=== PATIENT | female | born 1990 | race Caucasian/White ===

== ENCOUNTER → 2016-10-30 | Outpatient (REF) | payer OTHER ==
[~2016-10-30] MED LIST: ACET50TA PO; IBUP80TA PO
== END ==
LOC: M LAB REF 17:35
PROVIDERS: ATTEND Advanced Practice Midwife
DX: Z12.4 Encounter for screening for malignant neoplasm of cervix (principal); R87.610 Atypical squamous cells of undetermined significance on cytologic smear of cervix (ASC-US)

== ENCOUNTER → 2017-03-02 | Outpatient (REF) | payer OTHER | LOC: M SFHCLERA 12:10 | PROVIDERS: ATTEND Nurse Practitioner Family | DX: M54.5 Low back pain (principal) ==

== ENCOUNTER → 2018-08-18 | Outpatient (REF) | payer OTHER ==
[~2018-08-18] MED LIST changes: -ACET50TA PO; +MAPA500T2 PO
== END ==
LOC: M LAB REF 18:54
PROVIDERS: ATTEND Advanced Practice Midwife
DX: Z12.4 Encounter for screening for malignant neoplasm of cervix (principal)

== ENCOUNTER → 2018-08-28 | Outpatient (CLI) | payer OTHER ==
--- NOTE | 2018-08-28 09:41 | REP ---
Clinical: Right lower quadrant pain . Technique: Transabdominal pelvic ultrasound followed by transvaginal examination for better evaluation of the endometrium and adnexa with color Doppler evaluation of the ovaries. Comparison: 04/05/2015. Findings: Bladder is unremarkable and measures a 0.5 x 6.1 x 6.8 cm . Normal anteverted uterus measures 7.8 x 3.5 x 5.0 cm . The endometrial complex measures 3.6 mm thickness. No discrete uterine or endometrial abnormalities are appreciated. IUD identified in satisfactory position. Bilateral ovaries are normal in vascularity without evidence for torsion. Right ovary measures 3.9 x 1.6 x 3.2 cm ; R I = 0.45 . Left ovary measures 3.4 x 2.0 x 2.7 cm ; R I = 0.56 . Very subtle 7 mm echogenic area within the right ovary is nonspecific and may be an significant. No pelvic fluid or adnexal mass lesion . Impression: 1. Normal uterus with IUD in satisfactory position. 2. No evidence for torsion. 3. Very subtle 7 mm echogenic area within the right ovary. This may represent including hemorrhagic cyst with poor borders. Follow-up examination in 4 to 6 weeks may be warranted to evaluate for resolution. Electronically Signed by Justino Chew MD 08/28/2018 09:32 A
== END ==
LOC: M RAD 08:07
PROVIDERS: ATTEND Advanced Practice Midwife
DX: R10.31 Right lower quadrant pain (principal); Z97.5 Presence of (intrauterine) contraceptive device

== ENCOUNTER → 2018-10-14 | Outpatient (CLI) | payer OTHER ==
--- NOTE | 2018-10-14 22:42 | REP ---
Clinical: Ovarian cyst. Comparison: 08/28/2018. Technique: Transabdominal pelvic ultrasound with color Doppler evaluation of the adnexa. Findings: Normal anteverted uterus measures 8.8 x 2.9 x 3.0 cm. Endometrial complex measures 3.6 mm thickness. IUD identified in satisfactory position. Left ovary measures 3.6 x 1.8 x 1.8 cm; RI 0.71. Right ovary measures 2.7 x 1.3 x 1.2 cm. A 6.2 x 5.6 x 6.7 mm echogenic focus within the right ovary is again identified and unchanged. Bladder is normal and measures 9.0 x 10.3 x 7.9 cm. Impression: Relatively normal stable pelvic ultrasound. Electronically Signed by Justino Chew MD 10/14/2018 10:35 P
== END ==
LOC: M RAD 12:57
PROVIDERS: ATTEND Advanced Practice Midwife
DX: N83.201 Unspecified ovarian cyst, right side (principal)

== ENCOUNTER 2018-11-15 20:11 | Emergency (ER) | payer OTHER, SELFPAY ==
[~2018-11-15] VITALS: Ht 157.5 cm; Wt 59.1 kg
[2018-11-15] MEDS ORDERED: PSEUDOEPHEDRINE 30 MG TAB PO STA (21:36)
[2018-11-15] MEDS ORDERED: ONDANSETRON 4 MG ORAL DISINTEGRATING TAB (Q0162 PER 1MG) PO ONE (21:45)
[2018-11-15] MEDS ORDERED: AMOXICILLIN 500 MG CAP PO ONE (21:45)
[2018-11-15] MEDS ORDERED: PSEU120T19 PO (22:37)
[2018-11-15] MEDS ORDERED: AMOX500C PO (22:37)
[2018-11-15 22:50] VITALS: BP 120/76
--- NOTE | 2018-11-16 09:44 | REP ---
HISTORY: Dyspnea and pyrexia. COMPARISON: 02/05/2012 FINDINGS: The superior mediastinal structures are midline. The cardiac silhouette is unremarkable in size, shape and position. The diaphragmatic surfaces of the lungs are regular and the costophrenic angles are clear. The pulmonary burnett are clear. The imaged osseous structures are intact. IMPRESSION: There is no acute cardiopulmonary disease. No change from the prior exam. Electronically Signed by Vaibhav Moss DO 11/16/2018 10:05 A
== END 2018-11-15 22:51 | disposition home or self-care (01) ==
LOC: M ED 20:11
DX: H66.91 Otitis media, unspecified, right ear (principal); B34.9 Viral infection, unspecified
CPT/HCPCS: 71046; 99283; Q0162

== ENCOUNTER → 2019-07-26 | Outpatient (CLI) | payer OTHER ==
[~2019-07-26] MED LIST changes: +AMOX500C PO; +PSEU120T19 PO
== END ==
LOC: M LABSMTC 11:12
PROVIDERS: ATTEND Family Medicine
DX: Z11.59 Encounter for screening for other viral diseases (principal); Z20.818 Contact with and (suspected) exposure to other bacterial communicable diseases

== ENCOUNTER 2019-09-06 15:23 | Emergency (ER) | payer OTHER ==
[~2019-09-06] VITALS: Ht 160 cm; Wt 55.1 kg
[2019-09-06 15:23] VITALS: BP 120/76
[2019-09-06] MEDS ORDERED: MIRE1IUD IU (15:30)
[2019-09-06] MEDS ORDERED: KETOROLAC TROMETHAMINE 10 MG TAB PO ONE (15:45)
--- NOTE | 2019-09-06 22:52 | REP ---
RIGHT RIB SERIES: Four views of right ribs are performed. No fracture or bone lesion is seen. An accompanying PA view of the chest demonstrates no acute infiltrate. Heart and mediastinum are within normal limits. IMPRESSION: Negative right rib series. Electronically Signed by Jorge Franklin MD 09/07/2019 01:12 P
== END 2019-09-06 16:25 | disposition home or self-care (01) ==
LOC: M ED 15:23
DX: S23.41XA Sprain of ribs, initial encounter (principal); X58.XXXA Exposure to other specified factors, initial encounter; Y92.9 Unspecified place or not applicable; F41.9 Anxiety disorder, unspecified

== ENCOUNTER 2021-02-27 13:13 | Emergency (ER) | payer OTHER ==
[~2021-02-27] VITALS: Ht 157.5 cm; Wt 59.1 kg
[~2021-02-27 13:13] MED LIST changes: +MIRE1IUD IU
--- OUTSIDE RECORDS SUMMARY | 2021-02-27 13:21 | CCD ---
Author Author [facility] Organization [facility] Address Unknown Phone Unavailable Support Name Relationship Address Phone DOLLTREE Next Of Kin [address] [place] [address] DOLLAR TREE Next Of Kin [address] [place] [address] UNEMPLOYED Next Of Kin Unknown ARIC ISBELL Next Of Kin [address] [place] [address] Jaclyn ISBELL Next Of Kin [address] [place] [address] UE Next Of Kin Unknown Unavailable [employer] [place] [address] Unavailable ELEANOR PEOPLES Next Of Kin [address] [facility] [address] [place] [address] JADE ISBELL Next Of Kin [address] [place] [address] Re-disclosure Warning The records that you are about to access may contain information from federally-assisted alcohol or drug abuse programs. If such information is present, then the following federally mandated warning applies: This information has been disclosed to you from records protected by federal confidentiality rules (42 CFR part 2). The federal rules prohibit you from making any further disclosure of this information unless further disclosure is expressly permitted by the written consent of the person to whom it pertains or as otherwise permitted by 42 CFR part 2. A general authorization for the release of medical or other information is NOT sufficient for this purpose. The Federal rules restrict any use of the information to criminally investigate or prosecute any alcohol or drug abuse patient.The records that you are about to access may contain highly sensitive health information, the redisclosure of which is protected by Article 27-F of the [place] State Public Health law. If you continue you may have access to information: Regarding HIV / AIDS; Provided by facilities licensed or operated by the [facility] Office of Mental Health; or Provided by the [facility] Office for People With Developmental Disabilities. If such information is present, then the following [facility] mandated warning applies: This information has been disclosed to you from confidential records which are protected by state law. State law prohibits you from making any further disclosure of this information without the specific written consent of the person to whom it pertains, or as otherwise permitted by law. Any unauthorized further disclosure in violation of state law may result in a fine or usp sentence or both. A general authorization for the release of medical or other information is NOT sufficient authorization for further disc losure. Family History Family Member Name Family Member Gender Family Member Status Date o f Status Description Data Source(s) Unknown Unknown Problem MEDENT ([facility], ) brother: Insulin dependent Medications No Information Insurance Providers Payer name Policy type / Coverage type Policy ID Covered green party ID Covered green party's relationship to alford Policy Alford Plan Information [id number] [facility] [id number] SP [id number] SELF PAY ONLY [id number] SP [id number] [facility] O [id number] S [id number] [employer] COMMUNITY PLAN MCDO [id number] SP [id number] United [employer] Commercial [id number] Self [id number] [employer] COMMUNITY PLAN MCDO [id number] SP [id number] United [employer] Commercial [id number] Self [id number] [employer] COMMUNITY PLAN MCDO [id number] SP [id number] Medicaid [place] Medigap Part B [id number] Self [id number] [facility] [place] Medicaid [id number] Self [id number] [facility] O [id number] S [id number] Medicaid [place] Medigap Part B [id number] Self [id number] [facility] Medicaid [id number] Self [id number] [facility] [id number] SP [id number] MEDICAID M [id number] S [id number] O [id number] S [id number] P UNAVAILABLE UNAVAILA BLE MEDICAID [id number] SP [id number] MEDICAID [id number] SP [id number] SELF PAY UNAVAILABLE SP UNAVAILA BLE MIGUEL ANGEL [id number] SP [id number] Problems, Conditions, and Diagnoses No Information Surgeries/Procedures No Information Results No Information Social History No Information
[2021-02-27] MEDS ORDERED: ACET-897 PO (14:07)
[2021-02-27 17:44] VITALS: BP 111/68
[2021-02-27] MEDS ORDERED: KETOROLAC TROMETHAMINE 10 MG TAB PO ONE (20:30)
[2021-02-27] MEDS ORDERED: diphenhydrAMINE 50MG CAP PO ONE (20:30)
--- OUTSIDE RECORDS SUMMARY | 2021-02-27 21:04 | CCD ---
Author Author [facility] Organization [facility] Address Unknown Phone Unavailable Support Name Relationship Address Phone DOLLTREE Next Of Kin [address] [place] [address] DOLLAR TREE Next Of Kin [address] [place] [address] UNEMPLOYED Next Of Kin Unknown ARIC ISBELL Next Of Kin [address] [place] [address] Jaclyn ISBELL Next Of Kin [address] [place] [address] UE Next Of Kin Unknown Unavailable [place] [address] Unavailable ELEANOR PEOPLES Next Of Kin [address] [facility] [address] [place] [address] JADE ISBELL Next Of Kin [address] [place] [address] Re-disclosure Warning The records that you are [...] is protected by Article 27-F of the [place] State Public Health law. If you continue you may have access to information: Regarding HIV / AIDS; Provided by facilities licensed or operated by the [facility] Office of Mental Health; or Provided by the [facility] Office for People With Developmental Disabilities. If such information is present, then the following [facility] mandated warning applies: This information has [...] law may result in a fine or longterm sentence or both. A general authorization for the release of medical or other information is NOT sufficient authorization for further disc losure. Family History Family Member Name Family Member Gender Family Member Status Date o f Status Description Data Source(s) Unknown Unknown Problem [facility] ([facility], ) brother: Insulin dependent Medications No Information Insurance Providers Payer name Policy type / Coverage type Policy ID Covered democrat ID Covered democrat's relationship to alford Policy Alford Plan Information [id number] [facility] [id number] SP [id number] [id number] SP [id number] [facility] O [id number] S [id number] [facility] O [id number] S [id number] United Healthcare Commercial [id number] Self [id number] [facility] COMMUNITY PLAN [facility] [id number] SP [id number] [facility] Commercial [id number] Self [id number] [facility] [id number] SP [id number] Medicaid [place] Medigap Part B [id number] Self [id number] [facility] [place] Medicaid [id number] Self [id number] SELF PAY ONLY [id number] SP [id number] Medicaid [facility] Part B [id number] Self [id number] [facility] [place] Medicaid [id number] Self [id number] [facility] COMMUNITY PLAN [facility] [id number] SP [id number] MEDICAID M [id number] S [id number] [facility] O [id number] S [id number] P UNAVAILABLE UNAVAILA BLE MEDICAID [id number] SP [id number] MEDICAID [id number] SP [id number] SELF PAY UNAVAILABLE SP UNAVAILA BLE [facility] [id number] SP [id number] Problems, Conditions, and Diagnoses No Information Surgeries/Procedures No Information Results No Information Social History No Information
== END 2021-02-28 01:35 | disposition home or self-care (01) ==
LOC: M ED 13:13
DX: G43.909 Migraine, unspecified, not intractable, without status migrainosus (principal); J02.9 Acute pharyngitis, unspecified; H92.03 Otalgia, bilateral; Z97.5 Presence of (intrauterine) contraceptive device

== ENCOUNTER 2021-11-03 13:27 | Emergency (ER) | payer OTHER ==
[~2021-11-03] VITALS: Ht 157.5 cm; Wt 66.2 kg
[~2021-11-03 13:27] MED LIST changes: +ACET-897 PO
[2021-11-03 17:53] VITALS: BP 120/74
[2021-11-03] MEDS ORDERED: IBUP-1022 PO (18:16)
[2021-11-03] MEDS ORDERED: ANEC4CRE3 TOP (18:16)
== END 2021-11-03 18:33 | disposition home or self-care (01) ==
LOC: M ED 13:27
DX: S49.92XA Unspecified injury of left shoulder and upper arm, initial encounter (principal); W19.XXXA Unspecified fall, initial encounter

== ENCOUNTER 2022-02-03 11:21 | Emergency (ER) | payer OTHER ==
[~2022-02-03] VITALS: Ht 157.5 cm; Wt 64.9 kg
[~2022-02-03 11:21] MED LIST changes: +ANEC4CRE3 TOP; +IBUP-1022 PO
[2022-02-03] MEDS ORDERED: NS 1,000 ML IV ONE (12:15)
[2022-02-03] MEDS ORDERED: ONDANSETRON 4MG 2ML VIAL IV ONE (12:15)
[2022-02-03 12:43] LABS: BASO % 0.3 % (0.0-1.0); EOS % 0.1 % (0.0-3.0); HEMATOCRIT 41.8 % (36.0-47.0); LYMPH % 14.8 % (24.0-44.0); MEAN CORPUSCULAR HEMOGLOBIN 28.3 pg (27.0-33.0); MEAN CORPUSCULAR HGB CONC 33.5 g/dl (32.0-36.5); MEAN CORPUSCULAR VOLUME 84.4 fl (80.0-96.0); MONO # 0.6 10^3/uL (0.0-0.8); MONO % 8.2 % (2.0-8.0); NEUTROPHILS # 5.2 10^3/uL (1.5-8.5); NEUTROPHILS % 76.5 % (36.0-66.0); PLATELET COUNT, AUTOMATED 223 10^3/uL (150-450); RED BLOOD COUNT 4.95 10^6/uL (4.00-5.40); WHITE BLOOD COUNT 6.8 10^3/uL (4.0-10.0)
[2022-02-03 13:11] LABS: HCG, SERUM QUALITATIVE NEGATIVE (NEGATIVE)
[2022-02-03 13:21] LABS: BLOOD UREA NITROGEN 15 MG/DL (7-18); CALCIUM LEVEL 9.2 MG/DL (8.5-10.1); CARBON DIOXIDE LEVEL 26 MEQ/L (21-32); CHLORIDE LEVEL 106 MEQ/L (98-107); GLOMERULAR FILTRATION RATE > 60.0 (>60); GLUCOSE, FASTING 94 MG/DL (70-100); POTASSIUM SERUM 3.5 MEQ/L (3.5-5.1); SODIUM LEVEL 140 MEQ/L (136-145)
[2022-02-03] MEDS ORDERED: ONDA4TAB6 PO (13:47)
[2022-02-03 14:00] VITALS: BP 131/75
== END 2022-02-03 14:02 | disposition home or self-care (01) ==
LOC: M ED 11:21
DX: R11.2 Nausea with vomiting, unspecified (principal); R19.7 Diarrhea, unspecified; M54.50 Low back pain, unspecified; Z20.828 Contact with and (suspected) exposure to other viral communicable diseases; F41.9 Anxiety disorder, unspecified; Z97.5 Presence of (intrauterine) contraceptive device
CPT/HCPCS: 80048; 84703; 85025; 96361; 96374; 99284; J2405

== ENCOUNTER 2023-02-05 15:42 | Emergency (ER) | payer OTHER ==
[~2023-02-05] VITALS: Ht 160 cm; Wt 61.7 kg
[2023-02-05 15:42] VITALS: BP 143/74; TEMP 97.3; O2SAT 98
[~2023-02-05 15:42] MED LIST changes: +ONDA4TAB6 PO
[2023-02-05 16:16] LABS: APPEARANCE, URINE CLEAR (CLEAR); BACTERIA, URINE AUTO NEGATIVE (NEGATIVE); BILIRUBIN, URINE AUTO NEGATIVE (NEGATIVE); BLOOD, URINE BLOOD NEGATIVE (NEGATIVE); COLOR, URINE YELLOW (YELLOW); GLUCOSE, URINE (UA) AUTO NEGATIVE (NEGATIVE); KETONE, URINE AUTO NEGATIVE (NEGATIVE); LEUKOCYTE ESTERASE, URINE AUTO NEGATIVE (NEGATIVE); NITRITE, URINE AUTO NEGATIVE (NEGATIVE); PROTEIN, URINE AUTO NEGATIVE (NEGATIVE); RBC, URINE AUTO 0 /HPF (0-3); SPECIFIC GRAVITY URINE AUTO 1.012 (1.002-1.035); SQUAMOUS EPITHELIAL CELL UR AU 1 /HPF (0-6); UROBILINOGEN, URINE AUTO 0.2 mg/dL (0.0-2.0); WBC, URINE AUTO 1 /HPF (0-3)
== END 2023-02-05 16:48 | disposition left against medical advice (07) ==
LOC: M ED 15:42
DX: Z53.21 Procedure and treatment not carried out due to patient leaving prior to being seen by health care provider (principal)

== ENCOUNTER 2023-05-22 12:12 | Inpatient (IN) | payer OTHER ==
[~2023-05-22] VITALS: Ht 157.5 cm; Wt 60.1 kg
[2023-05-22 13:21] LABS: HEMATOCRIT 44.8 % (36.0-47.0); HEMOGLOBIN 14.8 g/dl (12.0-15.5); MEAN CORPUSCULAR HEMOGLOBIN 28.4 pg (27.0-33.0); MEAN CORPUSCULAR VOLUME 85.8 fl (80.0-96.0); PLATELET COUNT, AUTOMATED 308 10^3/uL (150-450); RED BLOOD COUNT 5.22 10^6/uL (4.00-5.40); WHITE BLOOD COUNT 11.3 10^3/uL (4.0-10.0)
[2023-05-22 13:39] LABS: HCG, SERUM QUALITATIVE NEGATIVE (NEGATIVE)
[2023-05-22 13:45] LABS: ETHYL ALCOHOL (ETHANOL) < 0.003 % (0.000-0.010)
[2023-05-22 13:47] LABS: ALBUMIN 4.1 G/DL (3.2-5.2); ALKALINE PHOSPHATASE 66 U/L (46-116); ALT/SGPT 22 U/L (7.0-40); AST/SGOT 14 U/L (<34); BILIRUBIN,DIRECT 0.1 MG/DL (<0.4); BILIRUBIN,TOTAL 0.3 MG/DL (0.3-1.2); BLOOD UREA NITROGEN 11 MG/DL (9-23); CALCIUM LEVEL 9.4 MG/DL (8.5-10.1); CARBON DIOXIDE LEVEL 29 MMOL/L (20-31); CHLORIDE LEVEL 107 MMOL/L (98-107); CREATININE FOR GFR 0.65 MG/DL (0.55-1.30); GLOMERULAR FILTRATION RATE > 60.0 (>60); GLUCOSE, FASTING 93 MG/DL (60-100); POTASSIUM SERUM 3.8 MMOL/L (3.5-5.1); SALICYLATE LEVEL < 3.0 MG/DL (<30); SODIUM LEVEL 140 MMOL/L (136-145); TOTAL PROTEIN 7.2 G/DL (5.7-8.2)
[2023-05-22 13:49] LABS: THYROID STIMULATING HORMONE 0.634 uIU/ML (0.55-4.78)
[2023-05-22 13:53] LABS: AMPHETAMINES LEVEL URINE NEGATIVE (NEGATIVE)
[2023-05-22 13:54] LABS: BARBITURATES URINE NEGATIVE (NEGATIVE); BENZODIAZEPINES URINE NEGATIVE (NEGATIVE); COCAINE METABOLITE URINE NEGATIVE (NEGATIVE); METHADONE URINE NEGATIVE (NEGATIVE); OPIATES URINE NEGATIVE (NEGATIVE); PHENCYCLIDINE URINE NEGATIVE (NEGATIVE)
[2023-05-22 14:00] LABS: CANNABINOIDS URINE POSITIVE (NEGATIVE)
[2023-05-22] MEDS ORDERED: MOM 30ML SUSPENSION UDC PO PRN (15:40)
[2023-05-22] MEDS ORDERED: IBUPROFEN 400MG TAB PO PRN (15:40)
[2023-05-22] MEDS ORDERED: MAALOX 30 ML SUSP *UDC PO PRN (15:40)
[2023-05-22] MEDS ORDERED: ACETAMINOPHEN TAB 650MG DOSE (2X325MG) PO PRN (15:40)
[2023-05-22] MEDS ORDERED: HOME MED LIST COMPLETE! XX SCH (18:20)
[2023-05-22 18:29] VITALS: BP 112/61; TEMP 97.2; O2SAT 98
[2023-05-22] MEDS: diphenhydrAMINE 25MG CAP PO PRN (22:34)
[2023-05-23 06:37] VITALS: BP 130/87; TEMP 97.5; O2SAT 100
[2023-05-23 09:24] LABS: HEMATOCRIT 43.9 % (36.0-47.0); HEMOGLOBIN 14.7 g/dl (12.0-15.5); MEAN CORPUSCULAR HEMOGLOBIN 28.8 pg (27.0-33.0); MEAN CORPUSCULAR HGB CONC 33.5 g/dl (32.0-36.5); MEAN CORPUSCULAR VOLUME 85.9 fl (80.0-96.0); PLATELET COUNT, AUTOMATED 311 10^3/uL (150-450); RED BLOOD COUNT 5.11 10^6/uL (4.00-5.40); WHITE BLOOD COUNT 8.1 10^3/uL (4.0-10.0)
[2023-05-23] MEDS: ESCITALOPRAM OXALATE 10 MG TAB (LEXAPRO) PO SCH (09:30)
[2023-05-23 18:06] VITALS: BP 151/87; TEMP 98; O2SAT 98
[2023-05-23] MEDS: CARBAMIDE PEROXIDE 6.5% OTIC SOLN 15ML AU SCH (21:27)
[2023-05-23] MEDS: AUGMENTIN 875 MG TAB PO SCH (21:27)
[2023-05-24 06:35] VITALS: BP 116/58; TEMP 97; O2SAT 99
[2023-05-24 16:26] VITALS: BP 134/78; TEMP 98.1; O2SAT 100
[2023-05-24] MEDS: traZODone 50 MG TAB PO PRN (20:18)
[2023-05-25 06:42] VITALS: BP 115/59; TEMP 97.6; O2SAT 99
[2023-05-25 16:20] VITALS: BP 116/65; TEMP 98.5; O2SAT 100
[2023-05-25] MEDS: hydrOXYzine 50 MG TAB PO PRN (22:39)
[2023-05-26 06:55] VITALS: BP 91/52; TEMP 97.8; O2SAT 100
[2023-05-26 16:10] VITALS: BP 128/75; TEMP 98.9; O2SAT 100
[2023-05-27 06:11] VITALS: BP 110/73; TEMP 98.3; O2SAT 99
[2023-05-27] MEDS: busPIRone 10 MG TAB PO SCH (13:05)
[2023-05-27 17:17] VITALS: BP 117/62; TEMP 97.5; O2SAT 99
[2023-05-27] MEDS: traZODone 50 MG TAB PO PRN (20:30)
[2023-05-27] MEDS: PILL CUTTER 1 EACH XX PRN (20:30)
[2023-05-28 06:16] VITALS: BP 117/63; TEMP 98.6; O2SAT 100
[2023-05-28 16:14] VITALS: BP 121/78; TEMP 98.3; O2SAT 99
[2023-05-29 06:25] VITALS: BP 112/53; TEMP 97.5; O2SAT 95
[2023-05-29] MEDS ORDERED: BUSP10TA PO (09:24)
[2023-05-29] MEDS ORDERED: HYDR50TA70 PO (09:24)
[2023-05-29] MEDS ORDERED: LEXA1TAB PO (09:24)
[2023-05-29] MEDS ORDERED: TRAZ-252 PO (09:24)
== END 2023-05-29 12:51 | disposition home or self-care (01) | DRG 756 ==
LOC: M ED 12:12 → M ED INP 15:37 → M PSY 18:24
PROVIDERS: ADMIT Student in an Organized Health Care Education/Training Program; ATTEND Student in an Organized Health Care Education/Training Program
DX: F41.1 Generalized anxiety disorder (principal); F12.10 Cannabis abuse, uncomplicated; R45.851 Suicidal ideations; Z63.0 Problems in relationship with spouse or partner; F32.A Depression, unspecified

== ENCOUNTER 2023-09-14 15:08 | Inpatient (IN) | payer OTHER ==
[~2023-09-14] VITALS: Ht 157.5 cm; Wt 61.4 kg
[~2023-09-14 15:08] MED LIST changes: +BUSP10TA PO; +HYDR50TA70 PO; +LEXA1TAB PO; +ONDA-282 PO; -ONDA4TAB6 PO; +TRAZ-252 PO
[2023-09-14 16:02] LABS: HEMATOCRIT 41.4 % (36.0-47.0); HEMOGLOBIN 13.6 g/dl (12.0-15.5); MEAN CORPUSCULAR HEMOGLOBIN 28.4 pg (27.0-33.0); MEAN CORPUSCULAR HGB CONC 32.9 g/dl (32.0-36.5); MEAN CORPUSCULAR VOLUME 86.4 fl (80.0-96.0); PLATELET COUNT, AUTOMATED 261 10^3/uL (150-450); RED BLOOD COUNT 4.79 10^6/uL (4.00-5.40); WHITE BLOOD COUNT 7.6 10^3/uL (4.0-10.0)
[2023-09-14 16:25] LABS: AMPHETAMINES LEVEL URINE NEGATIVE (NEGATIVE); BARBITURATES URINE NEGATIVE (NEGATIVE); BENZODIAZEPINES URINE NEGATIVE (NEGATIVE); COCAINE METABOLITE URINE NEGATIVE (NEGATIVE); METHADONE URINE NEGATIVE (NEGATIVE); OPIATES URINE NEGATIVE (NEGATIVE); PHENCYCLIDINE URINE NEGATIVE (NEGATIVE)
[2023-09-14] MEDS ORDERED: hydrOXYzine 50 MG TAB PO PRN (16:25)
[2023-09-14 16:27] LABS: ETHYL ALCOHOL (ETHANOL) < 0.003 % (0.000-0.010)
[2023-09-14 16:29] LABS: ALBUMIN 4.1 G/DL (3.2-5.2); ALKALINE PHOSPHATASE 63 U/L (46-116); ALT/SGPT 19 U/L (7.0-40); AST/SGOT 9 U/L (<34); BILIRUBIN,DIRECT 0.2 MG/DL (<0.4); BILIRUBIN,TOTAL 0.6 MG/DL (0.3-1.2); BLOOD UREA NITROGEN 12 MG/DL (9-23); CALCIUM LEVEL 9.5 MG/DL (8.5-10.1); CARBON DIOXIDE LEVEL 28 MMOL/L (20-31); CHLORIDE LEVEL 107 MMOL/L (98-107); CREATININE FOR GFR 0.66 MG/DL (0.55-1.30); GLOMERULAR FILTRATION RATE > 60.0 (>60); GLUCOSE, FASTING 127 MG/DL (60-100); POTASSIUM SERUM 3.8 MMOL/L (3.5-5.1); SALICYLATE LEVEL < 3.0 MG/DL (<30); SODIUM LEVEL 142 MMOL/L (136-145)
[2023-09-14 16:30] LABS: CANNABINOIDS URINE POSITIVE (NEGATIVE); THYROID STIMULATING HORMONE 0.831 uIU/ML (0.55-4.78)
[2023-09-14] MEDS ORDERED: LEXA1TAB PO (17:04)
[2023-09-14] MEDS ORDERED: HYDR50TA70 PO (17:04)
[2023-09-14] MEDS ORDERED: BUSP10TA PO (17:04)
[2023-09-14] MEDS ORDERED: HOME MED LIST COMPLETE! XX SCH (17:05)
[2023-09-14] MEDS ORDERED: traZODone 50 MG TAB PO PRN (19:10)
[2023-09-14] MEDS ORDERED: ACETAMINOPHEN TAB 650MG DOSE (2X325MG) PO PRN (19:10)
[2023-09-14] MEDS ORDERED: diphenhydrAMINE 25MG CAP PO PRN (19:10)
[2023-09-14] MEDS ORDERED: MAALOX 30 ML SUSP *UDC PO PRN (19:10)
[2023-09-14] MEDS ORDERED: MOM 30ML SUSPENSION UDC PO PRN (19:10)
[2023-09-14] MEDS ORDERED: OLANZapine 5 MG TAB PO PRN (19:10)
[2023-09-14 21:17] VITALS: BP 131/76; TEMP 98.2; O2SAT 100
[2023-09-14] MEDS: busPIRone 10 MG TAB PO SCH (21:39)
[2023-09-14] MEDS: busPIRone 10 MG TAB PO ONE (22:02)
[2023-09-15] MEDS ORDERED: ESCITALOPRAM OXALATE 10 MG TAB (LEXAPRO) PO SCH (09:00)
[2023-09-15] MEDS: busPIRone 10 MG TAB PO SCH (12:29)
[2023-09-15] MEDS: ESCITALOPRAM OXALATE 10 MG TAB (LEXAPRO) PO SCH (12:30)
[2023-09-15 18:00] VITALS: BP 146/68; TEMP 97.8; O2SAT 100
[2023-09-15] MEDS: IBUPROFEN 400MG TAB PO PRN (22:06)
[2023-09-16 06:15] VITALS: BP 102/61; TEMP 97.2; O2SAT 100
== END 2023-09-16 15:21 | disposition home or self-care (01) | DRG 756 ==
LOC: M ED 15:08 → M ED INP 19:08 → M PSY 21:22
PROVIDERS: ADMIT Student in an Organized Health Care Education/Training Program; ATTEND Student in an Organized Health Care Education/Training Program
DX: F41.1 Generalized anxiety disorder (principal); Z79.899 Other long term (current) drug therapy; Z63.32 Other absence of family member; Z63.8 Other specified problems related to primary support group

== ENCOUNTER 2024-02-11 11:02 | Emergency (ER) | payer OTHER ==
[~2024-02-11] VITALS: Ht 157.5 cm; Wt 67.9 kg
[2024-02-11] MEDS ORDERED: MIREIUD (11:27)
[2024-02-11] MEDS: BOOSTRIX VACCINE (TETANUS/DIPHTH/ACEL. PERTUSSIS) 0.5ML SYR IM ONE (14:48)
[2024-02-11] MEDS: LIDOCAINE 2% MDV 20ML VIAL SC ONE (16:47)
[2024-02-11] MEDS ORDERED: CEPH500C PO (17:12)
[2024-02-11 17:15] VITALS: BP 127/68; TEMP 98.1; O2SAT 100
== END 2024-02-11 17:19 | disposition home or self-care (01) ==
LOC: M ED 11:02
DX: S61.304A Unspecified open wound of right ring finger with damage to nail, initial encounter (principal); Y92.019 Unspecified place in single-family (private) house as the place of occurrence of the external cause; Y93.9 Activity, unspecified; Y99.9 Unspecified external cause status; Z79.2 Long term (current) use of antibiotics; Z79.899 Other long term (current) drug therapy; Z23 Encounter for immunization

== ENCOUNTER 2024-05-03 15:01 | Emergency (ER) | payer OTHER ==
[~2024-05-03] VITALS: Ht 157.5 cm; Wt 66.8 kg
[~2024-05-03 15:01] MED LIST changes: +CEPH500C PO; +MIREIUD
[2024-05-03 15:05] VITALS: BP 122/75; TEMP 99.6; O2SAT 98
[2024-05-03 15:54] LABS: BASO % 0.2 % (0.0-1.0); HEMATOCRIT 41.8 % (36.0-47.0); HEMOGLOBIN 14.2 g/dl (12.0-15.5); LYMPH # 0.3 10^3/uL (1.5-5.0); LYMPH % 4.1 % (24.0-44.0); MEAN CORPUSCULAR HEMOGLOBIN 28.8 pg (27.0-33.0); MEAN CORPUSCULAR VOLUME 84.8 fl (80.0-96.0); MONO # 0.3 10^3/uL (0.0-0.8); MONO % 4.6 % (2.0-8.0); NEUTROPHILS # 5.7 10^3/uL (1.5-8.5); NEUTROPHILS % 90.8 % (36.0-66.0); PLATELET COUNT, AUTOMATED 227 10^3/uL (150-450); RED BLOOD COUNT 4.93 10^6/uL (4.00-5.40); WHITE BLOOD COUNT 6.3 10^3/uL (4.0-10.0)
[2024-05-03 16:18] LABS: BILIRUBIN,DIRECT 0.2 MG/DL (<0.4); BILIRUBIN,TOTAL 0.8 MG/DL (0.3-1.2); TOTAL PROTEIN 7.3 G/DL (5.7-8.2)
[2024-05-03] MEDS: ONDANSETRON 4MG 2ML VIAL IV ONE (16:40)
[2024-05-03] MEDS ORDERED: ONDA-282 PO (18:10)
== END 2024-05-03 18:17 | disposition home or self-care (01) ==
LOC: M ED 15:01
DX: R11.2 Nausea with vomiting, unspecified (principal); F41.9 Anxiety disorder, unspecified; F32.A Depression, unspecified; Z79.899 Other long term (current) drug therapy
CPT/HCPCS: 80047; 80076; 83690; 84702; 85025; 87486; 87581; 87633; 87798; 96374; 99284; J2405

== ENCOUNTER 2025-02-27 07:24 | Emergency (ER) | payer OTHER, SELFPAY ==
[~2025-02-27] VITALS: Ht 157.5 cm; Wt 79.1 kg
[~2025-02-27 07:24] MED LIST changes: -IBUP-1022 PO; +IBUP600T42 PO
[2025-02-27 07:26] VITALS: TEMP 101.9
[2025-02-27 08:38] VITALS: BP 124/58
[2025-02-27 08:39] VITALS: O2SAT 96
[2025-02-27] MEDS: ACETAMINOPHEN 325 MG TAB PO ONE (08:45)
[2025-02-27] MEDS ORDERED: OSEL75CA PO (09:00)
[2025-02-27] MEDS ORDERED: ONDA-282 PO (09:00)
== END 2025-02-27 09:17 | disposition home or self-care (01) ==
LOC: M ED 07:24
DX: J09.X9 Influenza due to identified novel influenza A virus with other manifestations (principal); R11.0 Nausea; Z79.899 Other long term (current) drug therapy